=== PATIENT | female | born 2000 | race Caucasian/White ===

== ENCOUNTER 2021-11-15 20:19 | Emergency (ER) | payer BC ==
[~2021-11-15] VITALS: Ht 157.5 cm; Wt 89.4 kg
[2021-11-15 20:45] VITALS: BP 125/68
--- NOTE | 2021-11-15 21:06 | NUR ---
[facility] ASSESSING PT IN CHAIR A
--- NOTE | 2021-11-15 21:40 | NUR ---
PT TO BED 10
--- NOTE | 2021-11-15 21:50 | NUR ---
Pelvic exam performed by Dr Mcleod with me at bedside for entire examination. Patient tolerated procedure well. Patient assisted to position of comfort after examination vaginal swabs done for labs.
[2021-11-15 21:53] LABS: BASOPHILS # (AUTO) 0.1 K/uL (0.00-0.22); BASOPHILS % (AUTO) 0.7 % (0.0-2.0); EOSINOPHILS # (AUTO) 0.1 K/uL (0-0.4); EOSINOPHILS % (AUTO) 1.1 % (0.0-4.0); HEMATOCRIT 35.4 % (36-48); HEMOGLOBIN 11.8 g/dL (12.0-16.0); LYMPHOCYTES # (AUTO) 2.7 K/uL (2.5-16.5); LYMPHOCYTES % (AUTO) 19.9 % (20.5-51.1); MEAN CORPUSCULAR HEMOGLOBIN 29 pg (27-31); MEAN CORPUSCULAR HGB CONC 33 g/dL (33-37); MEAN CORPUSCULAR VOLUME 88.2 fL (80-94); MONOCYTES # (AUTO) 1.1 K/uL (0.8-1.0); MONOCYTES % (AUTO) 8.1 % (1.7-9.3); NEUTROPHILS # (AUTO) 9.7 K/uL (1.8-7.7); NEUTROPHILS % (AUTO) 70.2 % (42.2-75.2); PLATELET COUNT (AUTO) 317 K/uL (140-450); RED BLOOD CELL COUNT(AUTO) 4.02 MIL/uL (4.20-5.40); WHITE BLOOD COUNT (AUTO) 13.7 K/uL (4.8-10.8)
[2021-11-15 23:45] VITALS: BP 125/68
--- NOTE | 2021-11-15 23:45 | NUR ---
Patient discharged with v/s stable . Written and verbal after care instructions given and explained BY DR. COLLADO. Patient verbalized understanding. Ambulatory with steady gait. All questions addressed prior to discharge. Advised to follow up with PMD.
[2021-11-20] MEDS ORDERED: METR-435 PO (11:45)
--- NOTE | 2021-11-20 11:49 | NUR ---
LATE ENTRY. RECEIVED POSITIVE AEROBIC CULTURE. FORM GIVEN TO DR LARSEN, RX OF METRONIDAZOLE SENT TO [facility]. ATTEMPTED TO CALL PT, LINE IS BUSY AT THIS TIME, UNABLE TO REACH/LEAVE PT VOICEMAIL. FORM PLACED IN BINDER.
== END 2021-11-15 23:45 | disposition home or self-care (01) ==
LOC: MED 20:19
DX: O03.9 Complete or unspecified spontaneous abortion without complication (principal)
CPT/HCPCS: 36415; 81002; 81025; 84702; 85025; 87070; 87205; 87210; 87491; 99283